=== PATIENT | male | born 2000 | race American Indian/Alaskan Native ===

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

== ENCOUNTER 2018-02-24 14:16 | Emergency (ER) | payer OTHER ==
[2018-02-24] MEDS ORDERED: HALDOL IM PRN (14:56)
[2018-02-24] MEDS ORDERED: ATIVAN IM PRN (14:56)
[2018-02-24 15:07] LABS: Basophils % (Auto) 0.4 % (0.0-1.8); Eosinophils # (Auto) 0.3 K/mm3 (0.0-0.4); Eosinophils % (Auto) 3.7 % (0.0-4.3); Hematocrit 48.5 % (35.5-45.6); Lymphocytes # (Auto) 1.8 K/mm3 (1.2-5.4); Lymphocytes % (Auto) 23.2 % (13.4-35.0); Mean Corpuscular HGB Conc 33 % (32-34); Mean Corpuscular Hemoglobin 27 pg (28-32); Mean Corpuscular Volume 82 fl (84-94); Monocytes # (Auto) 0.6 K/mm3 (0.0-0.8); Monocytes % (Auto) 8.1 % (0.0-7.3); Platelet Count 339 K/mm3 (140-440); Red Blood Count 5.95 M/mm3 (3.65-5.03); Red Cell Distribution Width 14.3 % (13.2-15.2)
[2018-02-24 15:35] LABS: Bilirubin,Urine NEG (Negative); Blood,Urine NEG (Negative); Color,Urine Straw (Yellow); Protein,Urine <15 mg/dL mg/dL (Negative); Urobilinogen,Urine < 2.0 mg/dL (<2.0)
--- NOTE | 2018-02-24 15:37 | Emergency Department Report ---
ED Medical Clearance HPI - General Chief complaint: Overdose Stated complaint: EVALUATION Time Seen by Provider: 02/24/18 14:52 Source: patient, EMS (ems notes not available at time of chart dictation), RN notes reviewed Mode of arrival: Stretcher Limitations: No Limitations - History of Present Illness Initial comments: This is a 17-year-old gentleman who is not known to this provider previously. At 1:15 PM, approximately, patient consumed 10 ounces of fabulosos mud cleaner operator in a suicide attempt. He then reports coughing/vomiting most of it up. He denies other coingestions. He reports depression and suicidality. His symptoms are constant and will not describe exacerbating or relieving factors. He denies headache, neck pain, chest pain, abdominal pain, shortness of breath. He denies homicidality, access to guns firearms. Complaint: medical clearance request, other -: Sudden Reason for Medical Clearance: psychiatric condition Place: home Alledged Intoxication: No Compliant with Home Medications: Yes Traumatic Symptoms: denies traumatic injury Associated Symptoms: denies: chest pain, shortness of breath, palpitations, diaphoresis, confusion, cough, fever/chills, headaches, anorexia, malaise, nausea/vomiting, rash, syncope, weakness Home medications: Previous Rx's Medication Instructions Recorded Last Taken Type methOCARBAMOL [Robaxin TAB] 500 mg PO TID #15 tab 05/03/17 Unknown Rx Allergies/Adverse reactions: Allergies Allergy/AdvReac Type Severity Reaction Status Date / Time No Known Allergies Allergy Verified 02/24/18 14:35 ED Review of Systems ROS: Stated complaint: EVALUATION Other details as noted in HPI Comment: All other systems reviewed and negative Psychiatric: suicidal thoughts ED Past Medical Hx - Past Medical History Previous Medical History?: No - Surgical History Past Surgical History?: No - Social History Smoking Status: Never Smoker Substance Use Type: Alcohol, Marijuana - Medications Home Medications: Home Medications Medication Instructions Recorded Confirmed Last Taken Type methOCARBAMOL [Robaxin TAB] 500 mg PO TID #15 tab 05/03/17 Unknown Rx ED Physical Exam - General Limitations: No Limitations General appearance: alert, in no apparent distress - Head Head exam: Present: atraumatic, normocephalic - Eye Eye exam: Present: normal appearance, EOMI. Absent: nystagmus - ENT ENT exam: Present: normal exam, normal orophraynx, mucous membranes moist, normal external ear exam, other (patient speaking in full sentences. There is no stridor. There is no lingual, buccal or pharyngeal erythema) - Neck Neck exam: Present: normal inspection, full ROM. Absent: tenderness, meningismus - Respiratory Respiratory exam: Present: normal lung sounds bilaterally. Absent: respiratory distress - Cardiovascular Cardiovascular Exam: Present: regular rate, normal rhythm, normal heart sounds. Absent: bradycardia, tachycardia, irregular rhythm, systolic murmur, diastolic murmur, rubs, gallop - GI/Abdominal GI/Abdominal exam: Present: soft, normal bowel sounds. Absent: distended, tenderness, guarding, rebound, rigid, pulsatile mass - Rectal Rectal exam: Present: deferred - Extremities Exam Extremities exam: Present: normal inspection, full ROM, normal capillary refill. Absent: tenderness, pedal edema, joint swelling, calf tenderness - Back Exam Back exam: Present: normal inspection, full ROM. Absent: tenderness, CVA tenderness (R), paraspinal tenderness, vertebral tenderness - Neurological Exam Neurological exam: Present: alert, oriented X3, CN II-XII intact, normal gait, other (Extraocular movements intact. Tongue midline. No facial droop. Facial sensation intact to light touch in the V1, V2, V3 distribution bilaterally. 5 and 5 strength in 4 extremities.. Sensation is intact to light touch in 4 extremities.). Absent: motor sensory deficit - Psychiatric Psychiatric exam: Present: depressed, anxious, suicidal ideation. Absent: homicidal ideation - Skin Skin exam: Present: warm, dry, intact, normal color. Absent: rash ED Course Vital Signs 02/24/18 02/24/18 02/24/18 14:16 14:35 15:27 Temperature 99.4 F Pulse Rate 77 72 Respiratory 16 16 16 Rate Blood Pressure 141/70 O2 Sat by Pulse 98 98 Oximetry 02/24/18 02/24/18 02/24/18 15:30 15:45 16:00 Temperature Pulse Rate 74 76 81 Respiratory 20 20 21 Rate Blood Pressure 129/75 137/72 O2 Sat by Pulse 97 96 95 Oximetry 02/24/18 02/24/18 02/24/18 16:15 16:30 16:45 Temperature Pulse Rate 82 68 68 Respiratory 16 16 12 Rate Blood Pressure 133/73 130/76 141/67 O2 Sat by Pulse 96 97 97 Oximetry - Reevaluation(s) Reevaluation #1: 02/24/18 19:05 The patient is observed in the ER for 5 hours. There is no clinical decompensation. He is drinking without difficulty in office or erosive symptoms in his upper digestive tract. At this point in time, there does not appear to be in immediate medical contraindication to psychiatric admission, evaluation and consultation the crisis team is informed. ED Medical Decision Making - Lab Data Result diagrams: 02/24/18 14:48 02/24/18 15:04 Vital Signs 02/24/18 02/24/18 14:16 14:35 Temperature 99.4 F Pulse Rate 77 Respiratory 16 16 Rate Blood Pressure 141/70 O2 Sat by Pulse 98 98 Oximetry Lab Results 02/24/18 02/24/18 02/24/18 Range/Units 14:48 14:48 14:48 WBC (4.5-11.0) K/mm3 RBC (3.65-5.03) M/mm3 Hgb (11.8-15.2) gm/dl Hct (35.5-45.6) % MCV (84-94) fl MCH (28-32) pg MCHC (32-34) % RDW (13.2-15.2) % Plt Count (140-440) K/mm3 Lymph % (Auto) (13.4-35.0) % [place] % (Auto) (0.0-7.3) % Eos % (Auto) (0.0-4.3) % Baso % (Auto) (0.0-1.8) % Lymph # (1.2-5.4) K/mm3 [place] # (0.0-0.8) K/mm3 Eos # (0.0-0.4) K/mm3 Baso # (0.0-0.1) K/mm3 Seg Neutrophils % (40.0-70.0) % Seg Neutrophils # (1.8-7.7) K/mm3 Urine Color (Yellow) Urine Turbidity (Clear) Urine pH (5.0-7.0) Ur Specific Pierce (1.003-1.030) Urine Protein (Negative) mg/dL Urine Glucose (UA) (Negative) mg/dL Urine Ketones (Negative) mg/dL Urine Blood (Negative) Urine Nitrite (Negative) Urine Bilirubin (Negative) Urine Urobilinogen (<2.0) mg/dL Ur Leukocyte Esterase (Negative) Urine WBC (Auto) (0.0-6.0) /HPF Urine RBC (Auto) (0.0-6.0) /HPF U Epithel Cells (Auto) (0-13.0) /HPF Salicylates < 0.3 L (2.8-20.0) mg/dL Acetaminophen < 5.0 L (10.0-30.0) ug/mL Plasma/Serum Alcohol < 0.01 (0-0.07) % 02/24/18 02/24/18 Range/Units 14:48 14:56 WBC 7.9 (4.5-11.0) K/mm3 RBC 5.95 H (3.65-5.03) M/mm3 Hgb 16.0 H (11.8-15.2) gm/dl Hct 48.5 H (35.5-45.6) % MCV 82 L (84-94) fl MCH 27 L (28-32) pg MCHC 33 (32-34) % RDW 14.3 (13.2-15.2) % Plt Count 339 (140-440) K/mm3 Lymph % (Auto) 23.2 (13.4-35.0) % [place] % (Auto) 8.1 H (0.0-7.3) % Eos % (Auto) 3.7 (0.0-4.3) % Baso % (Auto) 0.4 (0.0-1.8) % Lymph # 1.8 (1.2-5.4) K/mm3 [place] # 0.6 (0.0-0.8) K/mm3 Eos # 0.3 (0.0-0.4) K/mm3 Baso # 0.0 (0.0-0.1) K/mm3 Seg Neutrophils % 64.6 (40.0-70.0) % Seg Neutrophils # 5.1 (1.8-7.7) K/mm3 Urine Color Straw (Yellow) Urine Turbidity Clear (Clear) Urine pH 5.0 (5.0-7.0) Ur Specific Pierce 1.013 (1.003-1.030) Urine Protein <15 mg/dl (Negative) mg/dL Urine Glucose (UA) Neg (Negative) mg/dL Urine Ketones Neg (Negative) mg/dL Urine Blood Neg (Negative) Urine Nitrite Neg (Negative) Urine Bilirubin Neg (Negative) Urine Urobilinogen < 2.0 (<2.0) mg/dL Ur Leukocyte Esterase Neg (Negative) Urine WBC (Auto) 1.0 (0.0-6.0) /HPF Urine RBC (Auto) 1.0 (0.0-6.0) /HPF U Epithel Cells (Auto) < 1.0 (0-13.0) /HPF Salicylates (2.8-20.0) mg/dL Acetaminophen (10.0-30.0) ug/mL Plasma/Serum Alcohol (0-0.07) % - EKG Data -: EKG Interpreted by Me EKG shows normal: sinus rhythm - EKG Data When compared to previous EKG there are: previous EKG unavailable 02/24/18 15:41 normal sinus, 73 beats minute, premature ventricular contractions, normal axis, incomplete right bundle-branch block, motion artifact, not a stemi - Medical Decision Making Differential diagnosis, including when not limited to: Toxic overdose, pharyngeal irritation, medical clearance for psychiatric placement Assessment and plan: 17-year-old male status post suicidal gesture. He has been a meatcutter the past. He is placed on a 1013. His pharyngeal examination is unremarkable and he does not have current vomiting. In addition, he does not endorse corrosive symptoms in his upper airway congestion structures. Recontacted [place] poison control center and discussed with Deborah clarified her recommendations that were conveyed to the nurse. Her recommendation for GI evaluation would only be in the context the patient had persistent corrosive symptoms, or persistent nausea and vomiting. The patient has not disease and is therefore not require an emergent GI consult or endoscopic evaluation. He will be placed on a monitoring coordinator, screening laboratory studies will be drawn , and we will contact psychiatry once medically cleared. ED Disposition Clinical Impression: Medical clearance for psychiatric admission Disposition: DC/TX-65 PSY HOSP/PSY UNIT Is pt being admited?: No Does the pt Need Aspirin: No Condition: Good Referrals: PRIMARY CARE, [Primary Care Provider] - 3-5 Days
[2018-02-24 15:43] LABS: Amphetamine Screen,Urine PRESUMPTIVE NEGATIVE; Benzodiazepines Screen,Urine PRESUMPTIVE NEGATIVE; Cocaine Screen,Urine PRESUMPTIVE NEGATIVE; Methadone Screen,Urine PRESUMPTIVE NEGATIVE; Opiate Screen,Urine PRESUMPTIVE NEGATIVE
[2018-02-24 15:47] LABS: Alanine Aminotransferase 24 units/L (7-56); Albumin 4.6 g/dL (3.9-5); BUN/Creatinine Ratio 14; Blood Urea Nitrogen 13 mg/dL (9-20); Hemolysis Index 30
[2018-02-24 16:06] LABS: Cannabinoid Screen,Urine PRESUMPTIVE POSITIVE
--- NOTE | 2018-02-25 13:44 | Consultation ---
History of Present Illness - Reason for Consult Consult date: 02/25/18 Reason for consult: Mental Health Evaluation Requesting physician: RACHEL MALDONADO - Chief Complaint Chief complaint: "I am depressed" - History of Present Psychiatric Illness 17-year-old AA male presenting to the ER after consuming 10 ounces of fabulosos furniture cleaner in a suicide attempt. Today the patient is calm, cooperative, but withdrawn during the assessment. He stated that he have been struggling with depression for several years. He stated that he is dealing with a lot of life stressors. He stated that he feels sad, hopeless, and cannot ID why. He stated that his mental health is a concern right now. He stated that he became overwhelmed yesterday with issues and decided to drink the cleaning solution to kill himself. He stated cutting himself in the past to lower his anxiety. He denies any previous suicide attempts in the past. He rate his depression 7/10, with 10 being the worse. He denies SI/HI's and AVH's. He denies erratic sleep, a poor appetite, and any manic episodes in the past. He acknowledged smoking marijuana and consuming alcohol "sometimes." Medications and Allergies Allergies Allergy/AdvReac Type Severity Reaction Status Date / Time No Known Allergies Allergy Verified 02/24/18 14:35 Home Medications Medication Instructions Recorded Confirmed Last Taken Type No Known Home Medications [No 02/24/18 02/24/18 Unknown History Reported Home Medications] Active Meds: Active Medications Haloperidol Lactate (Haldol) 5 mg IM Q6HR PRN PRN Reason: Agitation Lorazepam (Ativan) 2 mg IM Q4HR PRN PRN Reason: Agitation Past psychiatric history - Past Medical History Past Medical History: No medical history Past Surgical History: No surgical history - past Psychiatric treatment and history psychiatric treatment history: Hx of depression. Denies a fa psy hx. - Social History Social history: lives with family Mental Status Exam - Vital signs Last Vital Signs Temp 97.9 F 02/25/18 11:27 Pulse 51 L 02/25/18 11:27 Resp 18 02/25/18 11:27 BP 110/51 02/25/18 11:27 Pulse Ox 99 02/25/18 11:27 - Exam Narrative exam: MSE: Appearance: calm, cooperative Behavior: regular eye contact Speech: regular rate and tone Mood: withdrawn, sad Affect: flat Thought Process: circumstantial Thought Content: denies SI/HI's and AVH's Motor Activity: lying in bed Cognition: A/O x3 Insight: variable Judgment: variable Results Result Diagrams: 02/24/18 14:48 02/24/18 15:04 Abnormal lab results 02/24/18 02/24/18 02/24/18 Range/Units 14:48 14:48 14:48 RBC 5.95 H (3.65-5.03) M/mm3 Hgb 16.0 H (11.8-15.2) gm/dl Hct 48.5 H (35.5-45.6) % MCV 82 L (84-94) fl MCH 27 L (28-32) pg [place] % (Auto) 8.1 H (0.0-7.3) % Total Creatine Kinase (55-170) units/L Salicylates < 0.3 L (2.8-20.0) mg/dL Acetaminophen < 5.0 L (10.0-30.0) ug/mL 02/24/18 Range/Units 15:04 RBC (3.65-5.03) M/mm3 Hgb (11.8-15.2) gm/dl Hct (35.5-45.6) % MCV (84-94) fl MCH (28-32) pg Roberts % (Auto) (0.0-7.3) % Total Creatine Kinase 498 H (55-170) units/L Salicylates (2.8-20.0) mg/dL Acetaminophen (10.0-30.0) ug/mL All other labs normal. Assessment and Plan Assessment and plan: Impression: MDD, Severe Type. Cannabis Use DO. Hx of self injury. Today the patient is calm, cooperative, but withdrawn during the assessment. QTc 424. DDx: R/O Bipolar DO, R/O Substance Induced Mood DO, R/O Personality DO Recommendation/Plan: Continue 1013 with placement to inpatient psy services. Start Zoloft 25 mg PO daily for depression. Discussed possible suicidality/ medication induced reema with patient reference Zoloft.
[2018-02-25] MEDS: ZOLOFT PO SCH (16:07)
[2018-02-26] MEDS: ZOLOFT PO SCH (10:00)
--- NOTE | 2018-02-26 13:29 | Progress Note ---
Subjective - Reason for Consult Consult date: 02/26/18 Reason for consult: Psychiatric Follow-up Evaluation - Chief Complaint Chief complaint: "I'm home sick" Patient is a 17-year-old male that presents to the ER after consuming 10 ounces of fabulosos hall cleaner in a suicide attempt. Today the patient is calm, cooperative, but withdrawn during the assessment. He states, " I'm home sick. I'm here because I attempted suicide. The depression is better." Patient reports that his depression is related to "life" stressors. He verbalizes " I was sad about how everything in my life was going." Patient endorses good sleep and appetite. Patient reports medication compliance. No side effects noted/reported. Mental Status Exam - Vital signs Last Vital Signs Temp 97.9 F 02/26/18 09:10 Pulse 64 02/26/18 09:10 Resp 18 02/25/18 21:55 BP 118/50 02/26/18 09:10 Pulse Ox 99 02/26/18 09:10 - Exam Narrative exam: Mental Status Exam General Appearance: Casually Dressed-hospital gown Eye Contact: Intermittent Orientation: Alert and oriented x 4 ( person, place, time, date, situation) Attitude/Behavior: Cooperative Sensorium: Clear Psychomotor & Musculoskeletal Activity:Laying in bed Mood: "Sleepy" Affect: Constricted Speech/Language: Normal rate and tone Thought Processes: Organized Thought Content: Reality oriented Perception: Patient denies Concentration/Attention: Intact Suicidal Ideations/Plan: Patient denies. Homicidal Ideations/Plan: Patient denies. Judgment: Variable Insight: Variable Assessment and Plan Impression: MDD, Severe Type. Cannabis Use DO. Hx of self injury. Today the patient is calm, cooperative, but withdrawn during the assessment. Patient continues to be somewhat guarded. He denies SI/HI's, A/VH's, and delusions. QTc 424. DDx: R/O Bipolar DO, R/O Substance Induced Mood DO, R/O Personality DO Recommendation/Plan: 1. Continue 1013 with placement to inpatient psychiatric services. 2. Continue Zoloft 25 mg PO daily for depression. Discussed possible suicidality /medication induced reema with patient reference Zoloft. 3. Will monitor mood, sleep, appetite, compliance, and side effects.
[2018-02-27] MEDS: ZOLOFT PO SCH (10:03)
--- NOTE | 2018-02-27 10:42 | Progress Note ---
Subjective - Reason for Consult Consult date: 02/27/18 Reason for consult: Psychiatry Follow-up - Chief Complaint Chief complaint: "I'm dealing with my issues" Patient is a 17-year-old male that presents to the ER after consuming 10 ounces of fabulosos curtain cleaner in a suicide attempt. Today the patient is calm and cooperative during the assessment. He stated that he made a "terrible decision" to swallowing the cleaning solution. He stated that he regret his actions. He denies SI/HI's and AVH's. He denies any side effects of his medication. Mental Status Exam - Vital signs Last Vital Signs Temp 98.1 F 02/27/18 10:21 Pulse 51 L 02/27/18 10:21 Resp 18 02/27/18 10:21 BP 112/67 02/27/18 10:21 Pulse Ox 99 02/27/18 10:21 - Exam Narrative exam: MSE: Appearance: calm, cooperative Behavior: regular eye contact Speech: regular rate and tone Mood: "better" Affect: congruent to mood Thought Process: circumstantial Thought Content: denies SI/HI's and AVH's Motor Activity: lying in bed Cognition: A/O x3 Insight: fair Judgment: variable Assessment and Plan Impression: MDD, Severe Type. Cannabis Use DO. Hx of self injury. Today the patient is calm and cooperative during the assessment. QTc 424. DDx: R/O Bipolar DO, R/O Substance Induced Mood DO, R/O Personality DO Recommendation/Plan: Continue 1013 with placement to inpatient psy services. Continue Zoloft 25 mg PO daily for depression. Discussed possible suicidality/ medication induced reema with patient reference Zoloft.
[2018-02-28 10:42] VITALS: BP 130/78
--- NOTE | 2018-02-28 12:58 | Progress Note ---
Subjective - Reason for Consult Consult date: 02/28/18 Reason for consult: Psychiatry Follow-up - Chief Complaint Chief complaint: "I am going to a hospital" Patient is a 17-year-old male that presents to the ER after consuming 10 ounces of fabulosos ribbon cleaner in a suicide attempt. Today the patient is calm and cooperative during the assessment. He stated that he has been reflecting a lot about his life since being in the ER. He stated that he should have reached out to a crisis line for help to assist him with his issues. He denies SI/HI's and AVH's. He denies any side effects of his medication. Mental Status Exam - Vital signs Last Vital Signs Temp 98.6 F 02/28/18 10:40 Pulse 73 02/28/18 10:40 Resp 18 02/28/18 10:42 BP 130/78 02/28/18 10:40 Pulse Ox 97 02/28/18 10:40 - Exam Narrative exam: MSE: Appearance: calm, cooperative Behavior: regular eye contact Speech: regular rate and tone Mood: "okay" Affect: congruent to mood Thought Process: circumstantial Thought Content: denies SI/HI's and AVH's Motor Activity: ambulatory Cognition: A/O x3 Insight: fair Judgment: variable Assessment and Plan Impression: MDD, Severe Type. Cannabis Use DO. Hx of self injury. Today the patient is calm and cooperative during the assessment. QTc 424. DDx: R/O Bipolar DO, R/O Substance Induced Mood DO, R/O Personality DO Recommendation/Plan: Continue 1013 with placement to [facility]. Continue Zoloft 25 mg PO daily for depression. Discussed possible suicidality/medication induced reema with patient reference Zoloft.
== END 2018-02-28 10:55 ==
LOC: ED 14:16 → EEVIPCON 14:16 → ED 02-28 10:55
DX: F32.9 Major depressive disorder, single episode, unspecified (principal); R45.851 Suicidal ideations; F12.10 Cannabis abuse, uncomplicated
CPT/HCPCS: 36415; 80053; 80307; 81001; 82550; 85025; 93005; 93010; 99285; G0480; 80320